=== PATIENT | female | born 1985 | race Caucasian/White ===

== ENCOUNTER 2017-02-22 08:00 | Inpatient (IN) ==
[2017-03-19 06:22] VITALS: BMI 23.7
[2017-03-19] MEDS ORDERED: LIDOCAINE 1% (10mg/ml) 2mL INJ PF SDV ID PRN (06:22)
[2017-03-19] MEDS ORDERED: CALCIUM CARBONATE Chewable 500mg TABLET PO PRN (06:22)
[2017-03-19] MEDS ORDERED: ACETAMINOPHEN 500 MG TABLET PO PRN (06:22)
[2017-03-19] MEDS ORDERED: D5LR 1,000 ML IV PRN (06:22)
[2017-03-19] MEDS ORDERED: MAG-AL + SIM ORAL LIQUID 30ml PO PRN (06:22)
[2017-03-19] MEDS ORDERED: METHYLERGONOVINE 0.2 MG/ML INJECTION IM PRN (06:22)
[2017-03-19] MEDS ORDERED: CARBOPROST 250 MCG/ML INJECTION IM PRN (06:22)
[2017-03-19] MEDS ORDERED: OXYTOCIN DRIP 30 UNIT/500 ML ML IV PRN (06:45)
[2017-03-19] MEDS ORDERED: AMPICILLIN 2 GM in NS 100 ML IV ONE (06:45)
[2017-03-19] MEDS: LR 1,000 ML IV PRN ×2 (07:14→14:40)
[2017-03-19] MEDS: AMPICILLIN 1 GM in NS 100 ML IV SCH ×2 (10:38→15:56)
[2017-03-19] MEDS ORDERED: ROPIVACAINE 1% 10MG/ML INJ 200 MG, SUFentanil 50 MCG in NS 100 ML EPI PRN (11:44)
[2017-03-19] MEDS ORDERED: ONDANSETRON 4 MG/2 ML INJECTION IVP PRN (11:44)
[2017-03-19] MEDS ORDERED: NALOXONE 0.4 MG/ML INJECTION IVP PRN (11:44)
[2017-03-19] MEDS ORDERED: DiphenhydrAMINE 50 MG/ML INJECTION IVP PRN (11:44)
--- NOTE | 2017-03-19 11:44 | Anesthesia Preoperative Report ---
Anesthesia Epidural/Spinal Rec - Date and Time Date: 03/19/17 Procedure: Labor Epidural Plan: Epidural - Vital Signs Vital Signs: Temperature 97.7 F 03/19/17 06:56 Respiratory Rate 16 03/19/17 06:56 /Para: P:0 - Medictaions & Allergies Inpatient Medications: Current Medications Acetaminophen (Tylenol) 500 - 1,000 mg PO Q4H PRN PRN Reason: Pain Al Hydroxide/Mg Hydroxide (Maalox Plus) 30 ml PO Q3H PRN PRN Reason: Indigestion Calcium Carbonate (Tums) 500 - 1,000 mg PO Q2H PRN PRN Reason: Indigestion Carboprost Tromethamine (Hemabate) 250 mcg IM O PRN PRN Reason: .Downtime Dextrose/Lactated Ringer's (Dextrose 5%-Lactated Ringers) 1,000 mls @ 125 mls/ hr IV .Q8H PRN PRN Reason: Labor Last Admin: 03/19/17 07:13 Dose: 125 mls/hr Lactated Ringer's (Lactated Ringers) 1,000 mls @ 1,000 mls/hr IV .Q1H PRN PRN Reason: as directed Last Admin: 03/19/17 07:14 Dose: 1,000 mls/hr Oxytocin (Pitocin Drip) 30 unit in 500 mls @ 2 mls/hr IV .Q24H PRN; Protocol PRN Reason: Induction/Augmentation Last Admin: 03/19/17 07:15 Dose: 2 mls/hr Ampicillin Sodium 1 gm/ Sodium (Chloride) 100 mls @ 200 mls/hr IV Q4H [facility] Last Admin: 03/19/17 10:38 Dose: 200 mls/hr Lidocaine HCl (Xylocaine-Mpf 1% Vial) 0.2 mg ID O PRN PRN Reason: IV Start Methylergonovine Maleate (Methergine) 0.2 mg IM O PRN Misoprostol (Cytotec) 800 mcg DC ONCE PRN Allergies/Adverse Reactions: Allergies Allergy/AdvReac Type Severity Reaction Status Date / Time erythromycin base Allergy Mild Rash Verified 03/19/17 08:05 minocycline Allergy Mild Rash Verified 03/19/17 08:05 - Home Medications Home Medications: Home Medications Medication Instructions Recorded Confirmed Type Acyclovir 400 mg 1-3XD 02/22/17 02/22/17 History Miralax 1 packet PO DAILY 02/22/17 03/19/17 History Vitamins 1 tab PO DAILY 02/22/17 03/19/17 History Acyclovir [Acyclovir] 400 mg PO 1-3XD 03/19/17 03/19/17 History - Medical History Respiratory: DENIES: Asthma Cardiovascular: DENIES: Angina, Hypertension Neuro/Musculoskeletal: Denies: Back Problems, Other Renal/Endocrine: DENIES: Diabetes Mellitus Type 2 Other History: DENIES: Anesthesia Reactions - Surgical History Anesthesia Reactions: None Hx Family Anesthesia Reaction: No History of Motion Sickness: No - Social History Smoking Status: Never smoker Second Hand Exposure: No Substance Use Type: does not use Alcohol Intake: never Alcohol Intake Frequency: does not drink Hx Chewing Tobacco Use: No - Pertinent Findings Lab Data: CBC and BMP 03/19/17 06:42 03/19/17 06:42 BMP 03/19/17 06:42 Sodium 137 Potassium 3.9 Chloride 108 H Carbon Dioxide 22 BUN 9.0 Creatinine 0.6 L Glucose 99 Calcium 9.8 Liver Function 03/19/17 Range/Units 06:42 Total Bilirubin 0.30 (0.20-1.30) MG/DL AST 25 (14-36) U/L ALT 27 (9-52) U/L Alkaline Phosphatase 121 (38-126) U/L Albumin 3.6 (3.5-5.0) G/DL - Physical Exam Respiratory Exam: lungs clear Cardiovascular Exam: regular rate and rhythm - Airway Assessment Mallampati Score: II TMD: 3 Fingerbreadths Neck Extension: good Overall Assessment: no airway concerns (full stomach concerns with ) - ASA ASA Score: 2 - Discussion Discussion: Discussed risks/options/alternatives of anesthesia and questions answered. Patient consents. Nursing pain assessment noted. Anesthesia Discussion: spouse Attestation Statement: Prior to the delivery of any anesthetic medication, I examined the patient, developed the plan, obtained the patient's consent and discussed the risk and benefits of the procedure with the patient/guardian.
[2017-03-19] MEDS: OXYTOCIN DRIP 30 UNIT/500 ML ML IV SCH ×2 (14:02→16:04)
[2017-03-19] MEDS ORDERED: CEFAZOLIN 1 G in NS 100 ML IV SCH (14:15)
[2017-03-19] MEDS ORDERED: HYDROCODONE/APAP 5mg/325mg TABLET PO PRN (14:49)
[2017-03-19] MEDS ORDERED: HYDROCORTISONE 2.5% CREAM 30gm RECTALLY PRN (14:49)
[2017-03-19] MEDS ORDERED: DiphenhydrAMINE 25 MG CAPSULE PO PRN (14:49)
[2017-03-19] MEDS ORDERED: LR 1,000 ML IV SCH (15:40)
[2017-03-19] MEDS: IBUPROFEN 800 MG TABLET PO PRN (17:05)
[2017-03-20] MEDS: SALINE FLUSH 10ml SYRINGE IVF PRN ×3 (02:25→12:25)
[2017-03-20] MEDS: IBUPROFEN 800 MG TABLET PO PRN ×3 (02:25→18:04)
--- NOTE | 2017-03-20 06:53 | Labor and Delivery Note ---
DATE OF DELIVERY 03/19/2017 DELIVERY NOTE Elizabeth is a 2, para 0 at 40 weeks 5 days gestational age who was brought in for an induction this morning. She was started on Pitocin. She was also started on ampicillin for her group B strep status. Her membranes were ruptured artificially returning clear fluids. She received an epidural. She progressed nicely throughout labor. She pushed for less than an hour and had a spontaneous vaginal delivery in the FINESSE position of a viable female infant, Apgars 8/9, weight 4210 g, name "Jennifer." The baby was vigorous at delivery, so she was placed on mom's abdomen. The cord clamping was delayed for over a minute. There was uterine bleeding, so the cord was clamped and cut. The placenta delivered spontaneously. She was found to have a partial third-degree laceration. With a finger in the rectum, the edges of the rectal sphincter were grasped with two Allis's. Three [id number] of 2-0 Vicryl were used to reapproximate the remainder of the rectal sphincter. A rectal exam confirmed no sutures in the rectum and good reapproximation of the sphincter. The remainder of the second-degree laceration was repaired in the normal fashion. She also had a small right vaginal laceration that was repaired with 2 -0 Vicryl. Her uterus was a little boggy. On manual exam, there was noted to be a significant amount of retained membranes. These were all removed and her fundus firmed up well. Between the mild atony and the lacerations, estimated blood loss was approximately 600 ml. After I left the delivery room, I was called because the patient was hypotensive and symptomatic. A second IV line was started. Her bleeding was minimal. A hemogram showed a hemoglobin of 7.7 and platelets had dropped down to 92,000. At this point the patient was feeling better with the fluid bolus and her vital signs were improved, so we are continuing to watch her at this point. KYLAH
--- NOTE | 2017-03-20 08:16 | OB/GYN Progress Note ---
<Whitney Glynn - Last Filed: 03/20/17 08:09> OB-PP Progress Note - General PPD1 - Subjective Date: 03/20/17 Lochia: Minimal Pain: contolled Voiding: voiding Nausea or Vomiting Present: No - Objective Vital Signs: Last Vital Signs Temp 98.4 F 03/20/17 06:05 Pulse 78 03/20/17 06:05 Resp 16 03/20/17 06:05 BP 97/58 03/20/17 06:05 Pulse Ox 99 03/20/17 06:05 Urine Output: good General: alert and oriented Abdomen: fundus firm Extremities: non-tender Edema: none Laboratory: Laboratory Results - last 24 hr 03/19/17 03/19/17 03/19/17 06:42 06:42 15:21 WBC 10.0 D RBC 2.74 L Hgb 7.7 L D Hct 25.1 L D MCV 91.6 MCH 28.1 MCHC 30.7 L RDW Std Deviation 42.3 Plt Count 92 L MPV 11.9 Turbidity < 20 Sodium 137 Potassium 3.9 Chloride 108 H Carbon Dioxide 22 Anion Gap 7 BUN 9.0 Creatinine 0.6 L GFR Calculation 116 BUN/Creatinine Ratio 15 Glucose 99 Calculated Osmolality 263 Calcium 9.8 Total Bilirubin 0.30 Icterus Index < 2 AST 25 ALT 27 Alkaline Phosphatase 121 Total Protein 6.1 L Albumin 3.6 Globulin 2.5 Albumin/Globulin Ratio 1.4 Specimen Hemolysis < 15 Blood Type O Positive Antibody Screen Negative 03/19/17 19:16 WBC 12.7 H RBC 3.51 L Hgb 9.8 L D Hct 31.4 L D MCV 89.5 MCH 27.9 MCHC 31.2 RDW Std Deviation 42.4 Plt Count 112 L MPV 12.2 Turbidity Sodium Potassium Chloride Carbon Dioxide Anion Gap BUN Creatinine GFR Calculation BUN/Creatinine Ratio Glucose Calculated Osmolality Calcium Total Bilirubin Icterus Index AST ALT Alkaline Phosphatase Total Protein Albumin Globulin Albumin/Globulin Ratio Specimen Hemolysis Blood Type Antibody Screen - Assessment Assessment: - Plan Plan: routine care (patient reports fainting last night when up to the BR. Up to the commode at bedside at 6:30. Tolerated well. Patient concerned about being up and about and getting light headed. Disc with EW. ) <Alejandra Dc - Last Filed: 03/20/17 08:33> OB-PP Progress Note - General Maternal Group B Strep: Positive Maternal blood type: O+ Maternal Rubella Status: Immune - Subjective Date: 03/20/17 - Objective Vital Signs: Last Vital Signs Temp 98.4 F 03/20/17 06:05 Pulse 78 03/20/17 06:05 Resp 16 03/20/17 06:05 BP 97/58 03/20/17 06:05 Pulse Ox 99 03/20/17 06:05 Laboratory: Laboratory Results - last 24 hr 03/19/17 03/19/17 03/19/17 06:42 06:42 15:21 WBC 10.0 D RBC 2.74 L Hgb 7.7 L D Hct 25.1 L D MCV 91.6 MCH 28.1 MCHC 30.7 L RDW Std Deviation 42.3 Plt Count 92 L MPV 11.9 Turbidity < 20 Sodium 137 Potassium 3.9 Chloride 108 H Carbon Dioxide 22 Anion Gap 7 BUN 9.0 Creatinine 0.6 L GFR Calculation 116 BUN/Creatinine Ratio 15 Glucose 99 Calculated Osmolality 263 Calcium 9.8 Total Bilirubin 0.30 Icterus Index < 2 AST 25 ALT 27 Alkaline Phosphatase 121 Total Protein 6.1 L Albumin 3.6 Globulin 2.5 Albumin/Globulin Ratio 1.4 Specimen Hemolysis < 15 Blood Type O Positive Antibody Screen Negative 03/19/17 19:16 WBC 12.7 H RBC 3.51 L Hgb 9.8 L D Hct 31.4 L D MCV 89.5 MCH 27.9 MCHC 31.2 RDW Std Deviation 42.4 Plt Count 112 L MPV 12.2 Turbidity Sodium Potassium Chloride Carbon Dioxide Anion Gap BUN Creatinine GFR Calculation BUN/Creatinine Ratio Glucose Calculated Osmolality Calcium Total Bilirubin Icterus Index AST ALT Alkaline Phosphatase Total Protein Albumin Globulin Albumin/Globulin Ratio Specimen Hemolysis Blood Type Antibody Screen - Assessment (1) (spontaneous vaginal delivery) Status: Acute (2) Third degree laceration of perineum, type 3A Status: Acute (3) Anemia, posthemorrhagic, acute Status: Acute - Plan Recheck hemagram this AM due to discrepancy last PM. Pharmacy consult for IV iron infusion. Rec avoiding constipation.
[2017-03-20] MEDS: DOCUSATE CALCIUM 240 MG CAPSULE PO SCH (08:57)
[2017-03-20] MEDS ORDERED: IRON DEXTRAN IV ONE (09:16)
[2017-03-20] MEDS ORDERED: NS IV ONE (09:16)
[2017-03-20] MEDS ORDERED: IRON DEXTRAN COMPLEX 100mg/2ml INJECTION IV ONE ×2 (10:00→12:15)
[2017-03-20] MEDS: POLYETHYL GLYCOL 3350 17gm PACKET PO SCH (10:04)
[2017-03-20] MEDS ORDERED: LR 1,000 ML IV SCH (10:28)
--- NOTE | 2017-03-20 12:27 | Pharmacy Consult ---
Pharmacy Consult-[facility] - Consult Information IV IRON CONSULT: Dx: Acute anemia 2* to blood loss: estimated blood loss= 600 ml Today's HCT = 29.3% Total calculated dose = 200 mg Will give 25mg IV test dose. Watch VS q15min x 1 hr. (Watching for anaphylaxis, respiratory distress, hives) If no reaction, will give dose 75 mg IV push today, and 100 mg IV push for a total dose of 200 mg Iron dextran Watch VS q15min x 1 hr after test dose, then q30 min x 2 after other doses. Thank you for the Iron dosing protocol, Ayaka Hastings RPh
[2017-03-20] MEDS ORDERED: NS FLUSH BAG 500ml IV PRN (12:41)
--- NOTE | 2017-03-20 15:56 | Anesthesia Postoperative Note ---
- Date and Time Date: 03/20/17 Time: 15:56 - Status Patient Participated in Evaluation: Patient Participated in Person Vital Signs: Temperature 98.1 F 03/20/17 09:10 Pulse Rate 95 03/20/17 14:33 Respiratory Rate 14 03/20/17 14:33 Blood Pressure 109/76 03/20/17 14:33 Pulse Oximetry 100 03/20/17 14:33 Oxygen Delivery Method Room Air Oxygen Flow Rate 100 Respiratory Function: Airway Patent, Regular Respirations Cardiovascular Function: Regular Pulse Mental Status: Alert and Oriented Pain Intensity: 0 Hydration: Taking PO Fluids Complications During Recover: None Apparent - Follow-Up Instructions Instructions: Per Surgeon
[2017-03-20 18:11] VITALS: RESP 16
[2017-03-21] MEDS: IBUPROFEN 800 MG TABLET PO PRN ×2 (04:45→12:49)
--- NOTE | 2017-03-21 07:51 | OB/GYN Progress Note ---
OB-PP Progress Note - General PPD2 Maternal Group B Strep: Positive Maternal blood type: O+ Maternal Rubella Status: Immune - Subjective Date: 03/21/17 Lochia: Minimal Pain: contolled Voiding: voiding Subjective Comments: Feeling much better today. Able to ambulate without dizziness. - Objective Vital Signs: Last Vital Signs Temp 98.2 F 03/20/17 23:23 Pulse 79 03/20/17 23:23 Resp 16 03/20/17 23:23 BP 99/61 03/20/17 23:23 Pulse Ox 98 03/20/17 23:23 Urine Output: good General: alert and oriented Abdomen: fundus firm, non-tender Extremities: non-tender Laboratory: Laboratory Results - last 24 hr 03/20/17 09:15 WBC 9.8 RBC 3.26 L Hgb 9.1 L Hct 29.3 L MCV 89.9 MCH 27.9 MCHC 31.1 RDW Std Deviation 42.4 Plt Count 113 L MPV 12.2 - Assessment (1) (spontaneous vaginal delivery) Status: Acute (2) Third degree laceration of perineum, type 3A Status: Acute (3) Anemia, posthemorrhagic, acute Status: Acute - Plan Plan: discharge home, continue PNV Given 1/2 of iron infusion yesterday and will get the other half today.
--- NOTE | 2017-03-21 07:55 | Discharge Instructions ---
Discharge Plan - Med Rec/Dispo Prescriptions: New Hydrocodone/APAP 5/325 [[place] 5/325] 1 - 2 tab PO Q4H PRN #30 tablet PRN Reason: Pain Ibuprofen [Motrin] 800 mg PO Q8H PRN #30 tablet PRN Reason: Pain Continue Vitamins 1 tab PO DAILY Miralax 1 packet PO DAILY Discontinued Acyclovir 400 mg 1-3XD Acyclovir [Acyclovir] 400 mg PO 1-3XD Discharge Instructions/Outpatient Orders: Final Provider Discharge Instructions Location: Determined By Patient - Disposition 01 Discharged Home, Self-Care
[2017-03-21] MEDS ORDERED: IRON DEXTRAN COMPLEX 100mg/2ml INJECTION IV SCH (09:00)
[2017-03-21] MEDS: POLYETHYL GLYCOL 3350 17gm PACKET PO SCH (09:19)
[2017-03-21] MEDS: DOCUSATE CALCIUM 240 MG CAPSULE PO SCH (09:54)
[2017-03-21 10:51] VITALS: BP 94/60; PULSE 72; TEMP 98.3; O2SAT 99
== END 2017-03-21 14:45 | disposition home or self-care (01) | DRG 774 ==
LOC: MC 03-19 06:09
PROVIDERS: ADMIT Obstetrics & Gynecology; ATTEND Obstetrics & Gynecology